=== PATIENT | female | born 1995 | race Hispanic/Latino ===

== ENCOUNTER 2021-01-10 08:59 | Emergency (ER) | payer MEDICAID ==
[~2021-01-10] VITALS: Ht 149.9 cm; Wt 80.0 kg
[2021-01-10 09:34] VITALS: BP 111/57
[2021-01-10 10:31] LABS: BASO% 1 % (0-3); EOS% 2 % (0-8); HEMATOCRIT 42.6 % (37.0-47.0); HEMOGLOBIN 12.1 g/dl (12.0-16.0); IMMATURE GRANULOCYTES 0.2 % (0.0-5.0); LYMPH% 24 % (15-41); MEAN CELL VOLUME 72.7 fL CALC (80.0-100.0); MEAN CORPUSCULAR HGB 20.6 pG CALC (26.0-32.0); MEAN CORPUSCULAR HGB CONC 28.4 g/dL CAL (32.0-36.0); MONO% 6 % (2-13); NEUT# 4.47 thou/uL (2.00-7.15); NEUT% 67 % (42-76); RED BLOOD COUNT 5.86 mill/uL (4.20-5.60)
[2021-01-10 10:52] LABS: ALBUMIN 4.3 g/dL (3.2-5.0); ALKALINE PHOSPHATASE 87 u/l (38-126); ANION GAP 11 (6-22 (CALC)); BILIRUBIN, TOTAL 0.4 mg/dL (0.0-1.4); BUN 10 mg/dL (7-17); BUN/CREATININE RATIO 24 (12-20 (CALC)); CARBON DIOXIDE 27 mmol/l (22-30); CHLORIDE 102 mmol/l (95-108); CREATININE 0.4 mg/dL (0.5-1.0); GFR > 60 ML/MIN (>=60 (CALC)); GFR FOR AFR.AMER. > 60 ML/MIN (>=60 (CALC)); LIPASE 38 u/l (23-300); POTASSIUM 3.8 mmol/l (3.5-5.1); SGOT/AST 50 u/l (14-36); SODIUM 137 mmol/l (137-146); TOTAL PROTEIN 7.8 g/dL (6.3-8.2)
[2021-01-10 10:53] LABS: PLATELET COUNT 272 thou/uL (130-400)
[2021-01-10 11:15] LABS: URINE BILIRUBIN - DIPSTICK NEGATIVE (NEGATIVE); URINE BLOOD DIPSTICK NEGATIVE (NEGATIVE); URINE COLOR YELLOW; URINE GLUCOSE - DIPSTICK NEGATIVE (NEGATIVE); URINE KETONE NEGATIVE (NEGATIVE); URINE LEUK ESTERASE NEGATIVE (NEGATIVE); URINE NITRITE - DIPSTICK NEGATIVE (Negative); URINE PH 5.5 (4.5-8.0); URINE PROTEIN - DIPSTICK NEGATIVE (NEG-TRACE); URINE UROBILINOGEN - DIPSTICK 0.2 E.U./dL (0.2)
== END 2021-01-10 13:40 | disposition home or self-care (01) ==
LOC: ED 08:59
PROVIDERS: Family Medicine
DX: R10.32 Left lower quadrant pain (principal); E66.9 Obesity, unspecified
CPT/HCPCS: Q9967

== ENCOUNTER 2021-01-13 19:53 | Emergency (ER) | payer MEDICAID ==
[~2021-01-13] VITALS: Ht 149.9 cm; Wt 80.5 kg
[2021-01-13] MEDS ORDERED: FERROUS SULFAT325 MG PO (20:33)
[2021-01-13] MEDS ORDERED: VITAMIN D PO (20:34)
[2021-01-13] MEDS ORDERED: MOTRIN400 MG/TAB PO (22:33)
[2021-01-14 00:03] VITALS: BP 112/66
== END 2021-01-14 00:05 | disposition home or self-care (01) ==
LOC: ED 19:53
DX: S80.02XA Contusion of left knee, initial encounter (principal); S40.011A Contusion of right shoulder, initial encounter; E66.9 Obesity, unspecified; V49.50XA Passenger injured in collision with unspecified motor vehicles in traffic accident, initial encounter

== ENCOUNTER 2021-01-20 10:09 | Emergency (ER) | payer MEDICAID ==
[~2021-01-20] VITALS: Ht 149.9 cm; Wt 78.0 kg
[~2021-01-20 10:09] MED LIST: FERROUS SULFAT325 MG PO; MOTRIN400 MG/TAB PO; VITAMIN D PO
[2021-01-20 13:10] VITALS: BP 105/58
== END 2021-01-20 13:21 | disposition home or self-care (01) ==
LOC: ED 10:09
DX: H92.02 Otalgia, left ear (principal); J02.9 Acute pharyngitis, unspecified; E66.3 Overweight; Z20.822 Contact with and (suspected) exposure to COVID-19

== ENCOUNTER 2021-02-12 08:24 | Emergency (ER) | payer MEDICAID ==
[~2021-02-12] VITALS: Ht 149.9 cm; Wt 79.0 kg
[2021-02-12] MEDS ORDERED: FERR SULFATE325 MG PO (08:40)
[2021-02-12 09:06] LABS: HEMATOCRIT 44.6 % (37.0-47.0); HEMOGLOBIN 13.2 g/dl (12.0-16.0); IMMATURE GRANULOCYTES 0.2 % (0.0-5.0); MEAN CORPUSCULAR HGB 23.4 pG CALC (26.0-32.0); MEAN CORPUSCULAR HGB CONC 29.6 g/dL CAL (32.0-36.0); NEUT# 5.6 thou/uL (2.00-7.15); RED BLOOD COUNT 5.64 mill/uL (4.20-5.60); RED CELL DISTRI WIDTH 20.9 % (11.5-15.5)
[2021-02-12 09:13] LABS: MEAN CELL VOLUME 79.1 fL CALC (80.0-100.0); URINE BILIRUBIN - DIPSTICK NEGATIVE (NEGATIVE); URINE BLOOD DIPSTICK NEGATIVE (NEGATIVE); URINE COLOR YELLOW; URINE GLUCOSE - DIPSTICK NEGATIVE (NEGATIVE); URINE KETONE NEGATIVE (NEGATIVE); URINE LEUK ESTERASE NEGATIVE (NEGATIVE); URINE PH 7.5 (4.5-8.0); URINE PROTEIN - DIPSTICK NEGATIVE (NEG-TRACE); URINE SPECIFIC GRAVITY 1.015; URINE UROBILINOGEN - DIPSTICK 0.2 E.U./dL (0.2)
[2021-02-12 09:18] LABS: URINE NITRITE - DIPSTICK NEGATIVE (Negative)
[2021-02-12 09:23] LABS: ALBUMIN 4.4 g/dL (3.2-5.0); ALKALINE PHOSPHATASE 85 u/l (38-126); AMYLASE 69 u/l (30-110); ANION GAP 12 (6-22 (CALC)); BILIRUBIN, TOTAL 0.4 mg/dL (0.0-1.4); BUN 16 mg/dL (7-17); BUN/CREATININE RATIO 29 (12-20 (CALC)); CARBON DIOXIDE 28 mmol/l (22-30); CHLORIDE 101 mmol/l (95-108); CREATININE 0.6 mg/dL (0.5-1.0); GFR > 60 ML/MIN (>=60 (CALC)); GFR FOR AFR.AMER. > 60 ML/MIN (>=60 (CALC)); LIPASE 59 u/l (23-300); SGOT/AST 51 u/l (14-36); SODIUM 137 mmol/l (137-146); TOTAL PROTEIN 7.7 g/dL (6.3-8.2)
[2021-02-12] MEDS ORDERED: ZOFRAN4 MG/TAB PO (10:03)
[2021-02-12 10:08] VITALS: BP 103/62
== END 2021-02-12 10:22 | disposition home or self-care (01) ==
LOC: ED 08:24
DX: R11.2 Nausea with vomiting, unspecified (principal); R10.13 Epigastric pain; R42 Dizziness and giddiness; E66.3 Overweight

== ENCOUNTER 2021-02-18 07:52 | Emergency (ER) | payer MEDICAID ==
[~2021-02-18] VITALS: Ht 149.9 cm; Wt 85.0 kg
[~2021-02-18 07:52] MED LIST changes: +FERR SULFATE325 MG PO; +ZOFRAN4 MG/TAB PO
[2021-02-18 09:28] VITALS: BP 124/72
[2021-02-18] MEDS ORDERED: IBUPROFEN600 MG PO (09:35)
[2021-02-18] MEDS ORDERED: FLEXERIL5 M1 PO (09:35)
== END 2021-02-18 10:11 | disposition home or self-care (01) ==
LOC: ED 07:52
DX: S16.1XXA Strain of muscle, fascia and tendon at neck level, initial encounter (principal); M62.48 Contracture of muscle, other site; E66.3 Overweight; X58.XXXA Exposure to other specified factors, initial encounter

== ENCOUNTER 2021-04-25 17:55 | Emergency (ER) | payer MEDICAID ==
[~2021-04-25] VITALS: Ht 149.9 cm; Wt 83.0 kg
[~2021-04-25 17:55] MED LIST changes: +FLEXERIL5 M1 PO; +IBUPROFEN600 MG PO
[2021-04-25] MEDS ORDERED: VITAMIN D PO (18:10)
[2021-04-25 19:01] LABS: URINE BILIRUBIN - DIPSTICK NEGATIVE (NEGATIVE); URINE BLOOD DIPSTICK NEGATIVE (NEGATIVE); URINE COLOR YELLOW; URINE GLUCOSE - DIPSTICK NEGATIVE (NEGATIVE); URINE KETONE NEGATIVE (NEGATIVE); URINE LEUK ESTERASE NEGATIVE (NEGATIVE); URINE PROTEIN - DIPSTICK NEGATIVE (NEG-TRACE); URINE SPECIFIC GRAVITY >=1.030; URINE UROBILINOGEN - DIPSTICK 0.2 E.U./dL (0.2)
[2021-04-25 19:04] LABS: URINE NITRITE - DIPSTICK NEGATIVE (Negative)
[2021-04-25 20:17] LABS: HEMATOCRIT 42.8 % (37.0-47.0); HEMOGLOBIN 13.3 g/dl (12.0-16.0); IMMATURE GRANULOCYTES 0.4 % (0.0-5.0); MEAN CELL VOLUME 80.8 fL CALC (80.0-100.0); MEAN CORPUSCULAR HGB 25.1 pG CALC (26.0-32.0); MEAN CORPUSCULAR HGB CONC 31.1 g/dL CAL (32.0-36.0); NEUT# 6.26 thou/uL (2.00-7.15); RED BLOOD COUNT 5.3 mill/uL (4.20-5.60); RED CELL DISTRI WIDTH 13.3 % (11.5-15.5)
[2021-04-25 20:22] LABS: ALBUMIN 4.2 g/dL (3.2-5.0); ALKALINE PHOSPHATASE 67 u/l (38-126); AMYLASE 74 u/l (30-110); ANION GAP 10 (6-22 (CALC)); BUN 10 mg/dL (7-17); BUN/CREATININE RATIO 25 (12-20 (CALC)); CARBON DIOXIDE 27 mmol/l (22-30); CHLORIDE 105 mmol/l (95-108); CREATININE 0.4 mg/dL (0.5-1.0); GFR > 60 ML/MIN (>=60 (CALC)); GFR FOR AFR.AMER. > 60 ML/MIN (>=60 (CALC)); LIPASE 44 u/l (23-300); POTASSIUM 3.8 mmol/l (3.5-5.1); SGOT/AST 71 u/l (14-36); SODIUM 138 mmol/l (137-146); TOTAL PROTEIN 7.8 g/dL (6.3-8.2)
[2021-04-25 20:24] LABS: BILIRUBIN, TOTAL 0.2 mg/dL (0.0-1.4)
[2021-04-25] MEDS ORDERED: CITRATE OF MEGNESIA PO (20:57)
[2021-04-25] MEDS ORDERED: MIRALAX17 GM PO (20:57)
[2021-04-25 21:00] VITALS: BP 138/90
== END 2021-04-25 21:11 | disposition home or self-care (01) ==
LOC: ED 17:55
PROVIDERS: Emergency Medicine
DX: K59.00 Constipation, unspecified (principal); E66.3 Overweight

== ENCOUNTER 2021-05-18 18:04 | Emergency (ER) | payer MEDICAID ==
[~2021-05-18] VITALS: Ht 149.9 cm; Wt 84.0 kg
[~2021-05-18 18:04] MED LIST changes: +CITRATE OF MEGNESIA PO; +MIRALAX17 GM PO
[2021-05-18 19:47] VITALS: BP 135/80
== END 2021-05-18 19:53 | disposition home or self-care (01) ==
LOC: ED 18:04
DX: S01.21XA Laceration without foreign body of nose, initial encounter (principal); V58.4XXA Person boarding or alighting a pick-up truck or van injured in noncollision transport accident, initial encounter

== ENCOUNTER 2021-05-20 21:37 | Emergency (ER) | payer MEDICAID ==
[~2021-05-20] VITALS: Ht 149.9 cm; Wt 83.0 kg
[2021-05-20 22:02] LABS: URINE BILIRUBIN - DIPSTICK NEGATIVE (NEGATIVE); URINE BLOOD DIPSTICK NEGATIVE (NEGATIVE); URINE COLOR YELLOW; URINE GLUCOSE - DIPSTICK 250 mg/dL (NEGATIVE); URINE KETONE TRACE mg/dL (NEGATIVE); URINE LEUK ESTERASE NEGATIVE (NEGATIVE); URINE NITRITE - DIPSTICK NEGATIVE (Negative); URINE PROTEIN - DIPSTICK NEGATIVE (NEG-TRACE); URINE SPECIFIC GRAVITY >=1.030; URINE UROBILINOGEN - DIPSTICK 0.2 E.U./dL (0.2)
[2021-05-20 22:03] LABS: HEMATOCRIT 42.8 % (37.0-47.0); HEMOGLOBIN 13.5 g/dl (12.0-16.0); IMMATURE GRANULOCYTES 0.1 % (0.0-5.0); MEAN CELL VOLUME 79.7 fL CALC (80.0-100.0); MEAN CORPUSCULAR HGB 25.1 pG CALC (26.0-32.0); MEAN CORPUSCULAR HGB CONC 31.5 g/dL CAL (32.0-36.0); NEUT# 6.74 thou/uL (2.00-7.15); RED BLOOD COUNT 5.37 mill/uL (4.20-5.60); RED CELL DISTRI WIDTH 13.4 % (11.5-15.5)
[2021-05-20 22:15] LABS: ALBUMIN 4.2 g/dL (3.2-5.0); ALKALINE PHOSPHATASE 70 u/l (38-126); ANION GAP 17 (6-22 (CALC)); BILIRUBIN, TOTAL 0.3 mg/dL (0.0-1.4); BUN 13 mg/dL (7-17); BUN/CREATININE RATIO 23 (12-20 (CALC)); CARBON DIOXIDE 22 mmol/l (22-30); CHLORIDE 105 mmol/l (95-108); CREATININE 0.6 mg/dL (0.5-1.0); ETHYL ALCOHOL 0 mg/dl (0-30); GFR > 60 ML/MIN (>=60 (CALC)); GFR FOR AFR.AMER. > 60 ML/MIN (>=60 (CALC)); POTASSIUM 4.2 mmol/l (3.5-5.1); SGOT/AST 114 u/l (14-36); SODIUM 140 mmol/l (137-146); TOTAL PROTEIN 7.4 g/dL (6.3-8.2)
[2021-05-21 03:44] LABS: ALKALINE PHOSPHATASE 62 u/l (38-126); ANION GAP 12 (6-22 (CALC)); BUN 12 mg/dL (7-17); BUN/CREATININE RATIO 30 (12-20 (CALC)); CARBON DIOXIDE 22 mmol/l (22-30); CHLORIDE 109 mmol/l (95-108); CREATININE 0.4 mg/dL (0.5-1.0); GFR > 60 ML/MIN (>=60 (CALC)); GFR FOR AFR.AMER. > 60 ML/MIN (>=60 (CALC)); POTASSIUM 4.1 mmol/l (3.5-5.1); SGOT/AST 81 u/l (14-36); SODIUM 139 mmol/l (137-146); TOTAL PROTEIN 6.2 g/dL (6.3-8.2)
[2021-05-21 03:48] LABS: ALBUMIN 3.2 g/dL (3.2-5.0); BILIRUBIN, TOTAL 0.5 mg/dL (0.0-1.4)
[2021-05-21 05:26] VITALS: BP 117/56
== END 2021-05-21 05:25 | disposition designated cancer center or children's hospital (05) ==
LOC: ED 21:37
PROVIDERS: Emergency Medicine
DX: T45.2X2A Poisoning by vitamins, intentional self-harm, initial encounter (principal); F32.9 Major depressive disorder, single episode, unspecified; F41.9 Anxiety disorder, unspecified; E66.3 Overweight; Y92.009 Unspecified place in unspecified non-institutional (private) residence as the place of occurrence of the external cause; Z63.8 Other specified problems related to primary support group
CPT/HCPCS: J2060

== ENCOUNTER 2021-06-21 12:19 | Emergency (ER) | payer MEDICAID ==
[~2021-06-21] VITALS: Ht 149.9 cm; Wt 83.2 kg
[2021-06-21 13:57] LABS: URINE BILIRUBIN - DIPSTICK NEGATIVE (NEGATIVE); URINE BLOOD DIPSTICK NEGATIVE (NEGATIVE); URINE CLARITY CLEAR; URINE COLOR YELLOW; URINE GLUCOSE - DIPSTICK NEGATIVE (NEGATIVE); URINE KETONE TRACE mg/dL (NEGATIVE); URINE LEUK ESTERASE NEGATIVE (Negative); URINE NITRITE - DIPSTICK NEGATIVE (Negative); URINE PROTEIN - DIPSTICK NEGATIVE (NEG-TRACE); URINE SPECIFIC GRAVITY >=1.030; URINE UROBILINOGEN - DIPSTICK 0.2 E.U./dL (0.2)
[2021-06-21 14:13] LABS: HEMATOCRIT 43.1 % (37.0-47.0); HEMOGLOBIN 13.3 g/dl (12.0-16.0); IMMATURE GRANULOCYTES 0.1 % (0.0-5.0); MEAN CELL VOLUME 80.6 fL CALC (80.0-100.0); MEAN CORPUSCULAR HGB 24.9 pG CALC (26.0-32.0); MEAN CORPUSCULAR HGB CONC 30.9 g/dL CAL (32.0-36.0); NEUT# 5.09 thou/uL (2.00-7.15); RED BLOOD COUNT 5.35 mill/uL (4.20-5.60); RED CELL DISTRI WIDTH 12.9 % (11.5-15.5)
[2021-06-21 14:18] LABS: ALKALINE PHOSPHATASE 75 u/l (38-126); ANION GAP 13 (6-22 (CALC)); BUN 18 mg/dL (7-17); BUN/CREATININE RATIO 38 (12-20 (CALC)); CARBON DIOXIDE 26 mmol/l (22-30); CHLORIDE 103 mmol/l (95-108); CREATININE 0.5 mg/dL (0.5-1.0); GFR > 60 ML/MIN (>=60 (CALC)); GFR FOR AFR.AMER. > 60 ML/MIN (>=60 (CALC)); POTASSIUM 4.3 mmol/l (3.5-5.1); SGOT/AST 112 u/l (14-36); SODIUM 138 mmol/l (137-146); TOTAL PROTEIN 7.3 g/dL (6.3-8.2)
[2021-06-21 14:19] LABS: ALBUMIN 3.9 g/dL (3.2-5.0); BILIRUBIN, TOTAL 0.2 mg/dL (0.0-1.4)
[2021-06-21] MEDS ORDERED: NAPROXEN500 MG PO (16:24)
[2021-06-21 16:44] VITALS: BP 116/64
== END 2021-06-21 16:51 | disposition home or self-care (01) ==
LOC: ED 12:19
PROVIDERS: Family Medicine
DX: S43.011A Anterior subluxation of right humerus, initial encounter (principal); W07.XXXA Fall from chair, initial encounter

== ENCOUNTER 2021-06-29 11:41 | Emergency (ER) | payer MEDICAID ==
[~2021-06-29 11:41] MED LIST changes: +NAPROXEN500 MG PO
[2021-06-29] MEDS ORDERED: GENTAK0.32 OU (13:05)
[2021-06-29 13:15] VITALS: BP 107/71
== END 2021-06-29 13:15 | disposition home or self-care (01) ==
LOC: ED 11:41
DX: H10.9 Unspecified conjunctivitis (principal)

== ENCOUNTER 2021-07-11 22:54 | Observation (INO) | payer MEDICAID ==
[~2021-07-11] VITALS: Ht 149.9 cm; Wt 81.0 kg
[~2021-07-11 22:54] MED LIST changes: +GENTAK0.32 OU
[2021-07-12 02:01] LABS: HEMATOCRIT 38.3 % (37.0-47.0); HEMOGLOBIN 11.8 g/dl (12.0-16.0); IMMATURE GRANULOCYTES 0.6 % (0.0-5.0); MEAN CELL VOLUME 79.5 fL CALC (80.0-100.0); MEAN CORPUSCULAR HGB 24.5 pG CALC (26.0-32.0); MEAN CORPUSCULAR HGB CONC 30.8 g/dL CAL (32.0-36.0); NEUT# 5.17 thou/uL (2.00-7.15); RED BLOOD COUNT 4.82 mill/uL (4.20-5.60); RED CELL DISTRI WIDTH 13.2 % (11.5-15.5)
[2021-07-12 02:17] LABS: URINE BILIRUBIN - DIPSTICK NEGATIVE (NEGATIVE); URINE BLOOD DIPSTICK LARGE (NEGATIVE); URINE COLOR YELLOW; URINE GLUCOSE - DIPSTICK NEGATIVE (NEGATIVE); URINE KETONE NEGATIVE (NEGATIVE); URINE PROTEIN - DIPSTICK NEGATIVE (NEG-TRACE); URINE UROBILINOGEN - DIPSTICK 0.2 E.U./dL (0.2)
[2021-07-12 02:27] LABS: URINE NITRITE - DIPSTICK NEGATIVE (Negative)
[2021-07-12 02:28] LABS: URINE EPITHELIAL CELLS FEW EPI/hpf (0-FEW); URINE LEUK ESTERASE NEGATIVE (NEGATIVE)
[2021-07-12 02:29] LABS: URINE BACTERIA FEW hpf
[2021-07-12 02:30] LABS: ALBUMIN 3.6 g/dL (3.2-5.0); ALKALINE PHOSPHATASE 76 u/l (38-126); AMYLASE 80 u/l (30-110); ANION GAP 12 (6-22 (CALC)); BUN 12 mg/dL (7-17); BUN/CREATININE RATIO 32 (12-20 (CALC)); CARBON DIOXIDE 23 mmol/l (22-30); CHLORIDE 106 mmol/l (95-108); CREATININE 0.4 mg/dL (0.5-1.0); GFR > 60 ML/MIN (>=60 (CALC)); GFR FOR AFR.AMER. > 60 ML/MIN (>=60 (CALC)); LIPASE 54 u/l (23-300); POTASSIUM 4.1 mmol/l (3.5-5.1); SGOT/AST 123 u/l (14-36); SODIUM 136 mmol/l (137-146); TOTAL PROTEIN 6.9 g/dL (6.3-8.2)
[2021-07-12] MEDS ORDERED: IRON (FERROUS S50 MG PO (03:57)
[2021-07-12 09:30] VITALS: BP 87/57
[2021-07-12] MEDS ORDERED: NAPROXEN500 MG PO (10:04)
[2021-07-12] MEDS ORDERED: VITAMIN D35000 UNIT PO (10:07)
[2021-07-12 15:15] VITALS: BP 103/63
[2021-07-12 19:00] VITALS: BP 119/74
[2021-07-13] VITALS (10 sets, daily range): BP systolic 93–118; BP diastolic 53–73
[2021-07-14 04:00] VITALS: BP 103/40
[2021-07-14 08:38] VITALS: BP 118/74
[2021-07-14 15:25] VITALS: BP 130/65
[2021-07-14 19:00] VITALS: BP 121/54
== END 2021-07-14 19:58 | disposition home or self-care (01) ==
LOC: ED 22:54 → ED-I 07-12 05:10 → ED 07-12 05:29 → MS2 07-12 05:30
PROVIDERS: Emergency Medicine; ADMIT Surgery; ATTEND Surgery
DX: K56.1 Intussusception (principal); E66.3 Overweight; Z68.36 Body mass index [BMI] 36.0-36.9, adult; Z20.822 Contact with and (suspected) exposure to COVID-19
CPT/HCPCS: G0378; J0131; J1650; J2710; Q9967

== ENCOUNTER 2021-09-16 10:48 | Emergency (ER) | payer MEDICAID ==
[~2021-09-16] VITALS: Ht 149.9 cm; Wt 83.8 kg
[~2021-09-16 10:48] MED LIST changes: +IRON (FERROUS S50 MG PO; +VITAMIN D35000 UNIT PO
[2021-09-16 14:26] VITALS: BP 103/64
== END 2021-09-16 14:27 | disposition home or self-care (01) ==
LOC: ED 10:48
DX: M62.830 Muscle spasm of back (principal)

== ENCOUNTER 2021-10-29 13:44 | Emergency (ER) | payer OTHER ==
[~2021-10-29] VITALS: Ht 149.9 cm; Wt 84.8 kg
[2021-10-29 15:33] VITALS: BP 116/60
== END 2021-10-29 15:33 | disposition home or self-care (01) ==
LOC: ED 13:44
DX: J06.9 Acute upper respiratory infection, unspecified (principal); Z20.822 Contact with and (suspected) exposure to COVID-19

== ENCOUNTER 2021-11-19 19:44 | Emergency (ER) | payer OTHER | END 2021-11-19 20:40 | disposition home or self-care (01) | DRG 951 | LOC: ED 19:44 → LWOBS 20:38 | DX: Z53.21 Procedure and treatment not carried out due to patient leaving prior to being seen by health care provider (principal) ==

== ENCOUNTER 2021-11-21 10:16 | Emergency (ER) | payer OTHER ==
[~2021-11-21] VITALS: Ht 149.9 cm; Wt 78.6 kg
[2021-11-21 11:40] VITALS: BP 121/81
== END 2021-11-21 11:40 | disposition home or self-care (01) ==
LOC: ED 10:16
DX: J06.9 Acute upper respiratory infection, unspecified (principal); Z20.822 Contact with and (suspected) exposure to COVID-19

== ENCOUNTER 2022-03-26 10:37 | Emergency (ER) | payer OTHER ==
[2022-03-26] VITALS (11 sets, daily range): BP systolic 85–111; BP diastolic 48–75
[~2022-03-26] VITALS: Ht 149.9 cm; Wt 81.5 kg
[2022-03-26 11:38] LABS: HEMATOCRIT 36.4 % (37.0-47.0); IMMATURE GRANULOCYTES 0.1 % (0.0-5.0); MEAN CORPUSCULAR HGB 17.6 pG CALC (26.0-32.0); MEAN CORPUSCULAR HGB CONC 27.5 g/dL CAL (32.0-36.0); NEUT# 3.91 thou/uL (2.00-7.15); RED BLOOD COUNT 5.69 mill/uL (4.20-5.60); RED CELL DISTRI WIDTH 16.8 % (11.5-15.5)
[2022-03-26 11:55] LABS: ALBUMIN 3.9 g/dL (3.2-5.0); ALKALINE PHOSPHATASE 87 u/l (38-126); AMYLASE 85 u/l (30-110); ANION GAP 8 (6-22 (CALC)); BUN 10 mg/dL (7-17); BUN/CREATININE RATIO 27 (12-20 (CALC)); CARBON DIOXIDE 26 mmol/l (22-30); CHLORIDE 106 mmol/l (95-108); CREATININE 0.4 mg/dL (0.5-1.0); GFR > 60 ML/MIN (>=60 (CALC)); GFR FOR AFR.AMER. > 60 ML/MIN (>=60 (CALC)); LIPASE 51 u/l (23-300); POTASSIUM 3.8 mmol/l (3.5-5.1); SGOT/AST 155 u/l (14-36); SODIUM 137 mmol/l (137-146); TOTAL PROTEIN 7.3 g/dL (6.3-8.2)
[2022-03-26 12:06] LABS: BILIRUBIN, TOTAL 0.3 mg/dL (0.0-1.4)
[2022-03-26 13:13] LABS: URINE BILIRUBIN - DIPSTICK NEGATIVE (NEGATIVE); URINE BLOOD DIPSTICK LARGE (NEGATIVE); URINE COLOR YELLOW; URINE GLUCOSE - DIPSTICK 500 mg/dL (NEGATIVE); URINE KETONE NEGATIVE (NEGATIVE); URINE LEUK ESTERASE NEGATIVE (NEGATIVE); URINE PH 5.5 (4.5-8.0); URINE PROTEIN - DIPSTICK NEGATIVE (NEG-TRACE); URINE SPECIFIC GRAVITY 1.025; URINE UROBILINOGEN - DIPSTICK 0.2 E.U./dL (0.2)
[2022-03-26 13:14] LABS: URINE NITRITE - DIPSTICK NEGATIVE (Negative)
[2022-03-26 13:15] LABS: URINE EPITHELIAL CELLS FEW EPI/hpf (0-FEW); URINE RBC 50-100 RBC/hpf (0-5); URINE WBC 0-2 WBC/hpf (0-5)
[2022-03-26] MEDS ORDERED: ZOFRAN4 MG/TAB PO (14:59)
[2022-03-26] MEDS ORDERED: HYDROCO/APAP1 TA9 PO (14:59)
== END 2022-03-26 15:21 | disposition home or self-care (01) ==
LOC: ED 10:37
DX: R10.13 Epigastric pain (principal); R10.12 Left upper quadrant pain; R11.2 Nausea with vomiting, unspecified; R19.7 Diarrhea, unspecified
CPT/HCPCS: Q9967; S0164

== ENCOUNTER 2022-04-11 11:29 | Emergency (ER) | payer OTHER ==
[~2022-04-11] VITALS: Ht 149.9 cm; Wt 78.0 kg
[~2022-04-11 11:29] MED LIST changes: +HYDROCO/APAP1 TA9 PO
[2022-04-11 12:01] VITALS: BP 81/55
[2022-04-11 12:16] VITALS: BP 99/59
[2022-04-11 12:47] VITALS: BP 108/62
[2022-04-11 13:45] VITALS: BP 100/63
[2022-04-11 14:00] VITALS: BP 114/75
[2022-04-11] MEDS ORDERED: NAPROXEN500 MG PO (14:10)
[2022-04-11 14:15] VITALS: BP 104/68
== END 2022-04-11 14:25 | disposition home or self-care (01) ==
LOC: ED 11:29
DX: S80.11XA Contusion of right lower leg, initial encounter (principal); S93.401A Sprain of unspecified ligament of right ankle, initial encounter; W01.0XXA Fall on same level from slipping, tripping and stumbling without subsequent striking against object, initial encounter

== ENCOUNTER 2022-04-26 08:12 | Emergency (ER) | payer OTHER ==
[2022-04-26] VITALS (9 sets, daily range): BP systolic 100–130; BP diastolic 53–76
[~2022-04-26] VITALS: Ht 149.9 cm; Wt 83.0 kg
[2022-04-26 08:54] LABS: HEMATOCRIT 35.6 % (37.0-47.0); HEMOGLOBIN 9.5 g/dl (12.0-16.0); IMMATURE GRANULOCYTES 0.1 % (0.0-5.0); MEAN CELL VOLUME 62.3 fL CALC (80.0-100.0); MEAN CORPUSCULAR HGB 16.6 pG CALC (26.0-32.0); MEAN CORPUSCULAR HGB CONC 26.7 g/dL CAL (32.0-36.0); NEUT# 4.75 thou/uL (2.00-7.15); RED BLOOD COUNT 5.71 mill/uL (4.20-5.60); RED CELL DISTRI WIDTH 18.4 % (11.5-15.5)
[2022-04-26 09:00] LABS: URINE BILIRUBIN - DIPSTICK NEGATIVE (NEGATIVE); URINE BLOOD DIPSTICK MODERATE (NEGATIVE); URINE COLOR YELLOW; URINE GLUCOSE - DIPSTICK 500 mg/dL (NEGATIVE); URINE KETONE TRACE mg/dL (NEGATIVE); URINE LEUK ESTERASE NEGATIVE (NEGATIVE); URINE PH 5.5 (4.5-8.0); URINE PROTEIN - DIPSTICK NEGATIVE (NEG-TRACE); URINE SPECIFIC GRAVITY >=1.030; URINE UROBILINOGEN - DIPSTICK 0.2 E.U./dL (0.2)
[2022-04-26 09:03] LABS: URINE NITRITE - DIPSTICK NEGATIVE (Negative)
[2022-04-26 09:04] LABS: ALBUMIN 3.8 g/dL (3.2-5.0); ALKALINE PHOSPHATASE 100 u/l (38-126); ANION GAP 12 (6-22 (CALC)); BILIRUBIN, TOTAL 0.2 mg/dL (0.0-1.4); BUN 13 mg/dL (7-17); BUN/CREATININE RATIO 22 (12-20 (CALC)); CARBON DIOXIDE 23 mmol/l (22-30); CHLORIDE 107 mmol/l (95-108); CREATININE 0.6 mg/dL (0.5-1.0); GFR FOR AFR.AMER. > 60 ML/MIN (>=60 (CALC)); GFR OTHER RACES > 60 ML/MIN (>=60 (CALC)); LIPASE 53 u/l (23-300); POTASSIUM 4.1 mmol/l (3.5-5.1); SGOT/AST 78 u/l (14-36); SODIUM 138 mmol/l (137-146); TOTAL PROTEIN 6.9 g/dL (6.3-8.2)
[2022-04-26 09:12] LABS: URINE BACTERIA FEW hpf; URINE SQUAMOUS EPITHELIAL CELL FEW EPI/hpf (0-FEW)
[2022-04-26] MEDS ORDERED: CEPHALEXIN500 MG PO (10:30)
== END 2022-04-26 10:53 | disposition home or self-care (01) ==
LOC: ED 08:12
PROVIDERS: Family Medicine
DX: R51.9 Headache, unspecified (principal); N39.0 Urinary tract infection, site not specified; E66.9 Obesity, unspecified; Z20.822 Contact with and (suspected) exposure to COVID-19

== ENCOUNTER 2022-05-14 12:19 | Emergency (ER) | payer OTHER ==
[~2022-05-14] VITALS: Ht 149.9 cm; Wt 81.0 kg
[2022-05-14] VITALS (8 sets, daily range): BP systolic 104–118; BP diastolic 69–83
[~2022-05-14 12:19] MED LIST changes: +CEPHALEXIN500 MG PO
== END 2022-05-14 14:24 | disposition home or self-care (01) ==
LOC: ED 12:19
DX: J02.9 Acute pharyngitis, unspecified (principal); Z20.822 Contact with and (suspected) exposure to COVID-19
CPT/HCPCS: J0561

== ENCOUNTER 2022-05-25 06:26 | Emergency (ER) | payer OTHER ==
[2022-05-25] VITALS (10 sets, daily range): BP systolic 95–107; BP diastolic 55–71
[~2022-05-25] VITALS: Ht 149.9 cm; Wt 79.4 kg
[2022-05-25 07:35] LABS: URINE BILIRUBIN - DIPSTICK NEGATIVE (NEGATIVE); URINE BLOOD DIPSTICK SMALL (NEGATIVE); URINE COLOR YELLOW; URINE GLUCOSE - DIPSTICK >=1000 mg/dL (NEGATIVE); URINE KETONE >=80 mg/dL (NEGATIVE); URINE LEUK ESTERASE NEGATIVE (NEGATIVE); URINE PH 5.5 (4.5-8.0); URINE PROTEIN - DIPSTICK 30 mg/dL (NEG-TRACE); URINE UROBILINOGEN - DIPSTICK 0.2 E.U./dL (0.2)
[2022-05-25 07:36] LABS: HEMATOCRIT 34.9 % (37.0-47.0); HEMOGLOBIN 9.5 g/dl (12.0-16.0); IMMATURE GRANULOCYTES 0.4 % (0.0-5.0); MEAN CELL VOLUME 61.1 fL CALC (80.0-100.0); MEAN CORPUSCULAR HGB 16.6 pG CALC (26.0-32.0); MEAN CORPUSCULAR HGB CONC 27.2 g/dL CAL (32.0-36.0); NEUT# 10.3 thou/uL (2.00-7.15); RED BLOOD COUNT 5.71 mill/uL (4.20-5.60); RED CELL DISTRI WIDTH 18.8 % (11.5-15.5)
[2022-05-25 07:50] LABS: URINE NITRITE - DIPSTICK NEGATIVE (Negative)
[2022-05-25 07:54] LABS: ALKALINE PHOSPHATASE 86 u/l (38-126); ANION GAP 12 (6-22 (CALC)); BILIRUBIN, TOTAL 0.7 mg/dL (0.0-1.4); BUN 7 mg/dL (7-17); BUN/CREATININE RATIO 19 (12-20 (CALC)); CARBON DIOXIDE 22 mmol/l (22-30); CHLORIDE 105 mmol/l (95-108); CREATININE 0.4 mg/dL (0.5-1.0); GFR FOR AFR.AMER. > 60 ML/MIN (>=60 (CALC)); GFR OTHER RACES > 60 ML/MIN (>=60 (CALC)); POTASSIUM 3.3 mmol/l (3.5-5.1); SGOT/AST 59 u/l (14-36); SODIUM 135 mmol/l (137-146); TOTAL PROTEIN 7.6 g/dL (6.3-8.2)
[2022-05-25 07:57] LABS: URINE SQUAMOUS EPITHELIAL CELL FEW EPI/hpf (0-FEW)
[2022-05-25] MEDS ORDERED: CEPHALEXIN500 M1 PO (10:03)
== END 2022-05-25 10:17 | disposition home or self-care (01) ==
LOC: ED 06:26
PROVIDERS: Family Medicine
DX: R51.9 Headache, unspecified (principal); M54.2 Cervicalgia; L53.9 Erythematous condition, unspecified; D72.829 Elevated white blood cell count, unspecified; R73.9 Hyperglycemia, unspecified; M25.562 Pain in left knee; M25.552 Pain in left hip; E66.9 Obesity, unspecified; W18.40XA Slipping, tripping and stumbling without falling, unspecified, initial encounter; Z20.822 Contact with and (suspected) exposure to COVID-19

== ENCOUNTER 2022-05-29 23:07 | Emergency (ER) | payer OTHER ==
[~2022-05-29] VITALS: Ht 149.9 cm; Wt 80.0 kg
[~2022-05-29 23:07] MED LIST changes: +CEPHALEXIN500 M1 PO
[2022-05-30 01:24] LABS: URINE BILIRUBIN - DIPSTICK NEGATIVE (NEGATIVE); URINE BLOOD DIPSTICK MODERATE (NEGATIVE); URINE COLOR YELLOW; URINE GLUCOSE - DIPSTICK >=1000 mg/dL (NEGATIVE); URINE KETONE NEGATIVE (NEGATIVE); URINE PH 5.5 (4.5-8.0); URINE PROTEIN - DIPSTICK NEGATIVE (NEG-TRACE); URINE SPECIFIC GRAVITY 1.015; URINE UROBILINOGEN - DIPSTICK 0.2 E.U./dL (0.2)
[2022-05-30 01:37] LABS: URINE NITRITE - DIPSTICK NEGATIVE (Negative)
[2022-05-30 01:45] LABS: URINE LEUK ESTERASE NEGATIVE (NEGATIVE)
[2022-05-30 01:47] LABS: URINE EPITHELIAL CELLS FEW EPI/hpf (0-FEW)
[2022-05-30 01:48] LABS: URINE BACTERIA MODERATE hpf
[2022-05-30] MEDS ORDERED: KEFLEX500 MG PO (01:51)
[2022-05-30 01:59] VITALS: BP 121/55
== END 2022-05-30 02:10 | disposition home or self-care (01) ==
LOC: ED 23:07
PROVIDERS: Emergency Medicine
DX: N39.0 Urinary tract infection, site not specified (principal); B96.1 Klebsiella pneumoniae [K. pneumoniae] as the cause of diseases classified elsewhere

== ENCOUNTER 2022-07-11 06:35 | Emergency (ER) | payer OTHER ==
[~2022-07-11] VITALS: Ht 149.9 cm; Wt 79.0 kg
[2022-07-11] VITALS (7 sets, daily range): BP systolic 105–123; BP diastolic 52–83
[~2022-07-11 06:35] MED LIST changes: +KEFLEX500 MG PO
[2022-07-11 07:56] LABS: HEMATOCRIT 32.9 % (37.0-47.0); HEMOGLOBIN 8.7 g/dl (12.0-16.0); IMMATURE GRANULOCYTES 0.1 % (0.0-5.0); MEAN CORPUSCULAR HGB 15.9 pG CALC (26.0-32.0); MEAN CORPUSCULAR HGB CONC 26.4 g/dL CAL (32.0-36.0); NEUT# 3.95 thou/uL (2.00-7.15); RED BLOOD COUNT 5.48 mill/uL (4.20-5.60); RED CELL DISTRI WIDTH 18.3 % (11.5-15.5)
[2022-07-11 08:00] LABS: URINE BILIRUBIN - DIPSTICK NEGATIVE (NEGATIVE); URINE BLOOD DIPSTICK SMALL (NEGATIVE); URINE COLOR YELLOW; URINE GLUCOSE - DIPSTICK >=1000 mg/dL (NEGATIVE); URINE KETONE NEGATIVE (NEGATIVE); URINE UROBILINOGEN - DIPSTICK 0.2 E.U./dL (0.2)
[2022-07-11 08:14] LABS: URINE NITRITE - DIPSTICK NEGATIVE (Negative)
[2022-07-11 08:15] LABS: URINE BACTERIA RARE hpf; URINE EPITHELIAL CELLS FEW EPI/hpf (0-FEW); URINE LEUK ESTERASE SMALL (NEGATIVE); URINE PROTEIN - DIPSTICK NEGATIVE (NEG-TRACE)
[2022-07-11 08:20] LABS: ALKALINE PHOSPHATASE 88 u/l (38-126); ANION GAP 13 (6-22 (CALC)); BILIRUBIN, TOTAL 0.5 mg/dL (0.0-1.4); BUN 6 mg/dL (7-17); BUN/CREATININE RATIO 16 (12-20 (CALC)); CARBON DIOXIDE 26 mmol/l (22-30); CHLORIDE 105 mmol/l (95-108); CREATININE 0.3 mg/dL (0.5-1.0); GFR FOR AFR.AMER. > 60 ML/MIN (>=60 (CALC)); GFR OTHER RACES > 60 ML/MIN (>=60 (CALC)); LIPASE 42 u/l (23-300); SGOT/AST 78 u/l (14-36); SODIUM 140 mmol/l (137-146); TOTAL PROTEIN 7.1 g/dL (6.3-8.2)
[2022-07-11] MEDS ORDERED: BACTRIM DS1 TAB PO (09:26)
== END 2022-07-11 09:38 | disposition home or self-care (01) ==
LOC: ED 06:35
PROVIDERS: Emergency Medicine
DX: R10.32 Left lower quadrant pain (principal); N39.0 Urinary tract infection, site not specified; E11.9 Type 2 diabetes mellitus without complications; B96.1 Klebsiella pneumoniae [K. pneumoniae] as the cause of diseases classified elsewhere

== ENCOUNTER 2022-08-03 15:59 | Emergency (ER) | payer OTHER ==
[~2022-08-03] VITALS: Ht 149.9 cm; Wt 80.0 kg
[~2022-08-03 15:59] MED LIST changes: +BACTRIM DS1 TAB PO
[2022-08-03 16:37] VITALS: BP 112/66
[2022-08-03 16:45] VITALS: BP 106/69
[2022-08-03 17:35] LABS: HEMOGLOBIN 8.7 g/dl (12.0-16.0); IMMATURE GRANULOCYTES 0.4 % (0.0-5.0); MEAN CELL VOLUME 57.8 fL CALC (80.0-100.0); MEAN CORPUSCULAR HGB 15.7 pG CALC (26.0-32.0); MEAN CORPUSCULAR HGB CONC 27.2 g/dL CAL (32.0-36.0); NEUT# 3.49 thou/uL (2.00-7.15); RED BLOOD COUNT 5.54 mill/uL (4.20-5.60); RED CELL DISTRI WIDTH 19.2 % (11.5-15.5)
[2022-08-03 17:53] LABS: ALBUMIN 4.3 g/dL (3.2-5.0); ALKALINE PHOSPHATASE 78 u/l (38-126); ANION GAP 14 (6-22 (CALC)); BILIRUBIN, TOTAL 0.6 mg/dL (0.0-1.4); BUN 5 mg/dL (7-17); BUN/CREATININE RATIO 14 (12-20 (CALC)); CARBON DIOXIDE 24 mmol/l (22-30); CHLORIDE 103 mmol/l (95-108); CPK 162 u/l (30-165); CREATININE 0.4 mg/dL (0.5-1.0); GFR FOR AFR.AMER. > 60 ML/MIN (>=60 (CALC)); GFR OTHER RACES > 60 ML/MIN (>=60 (CALC)); POTASSIUM 3.5 mmol/l (3.5-5.1); SGOT/AST 51 u/l (14-36); SODIUM 137 mmol/l (137-146); TOTAL PROTEIN 7.5 g/dL (6.3-8.2)
[2022-08-03] MEDS ORDERED: NAPROXEN375 MG PO (17:58)
[2022-08-03] MEDS ORDERED: PREDNISONE20 MG PO (17:58)
[2022-08-03 17:59] VITALS: BP 106/69
== END 2022-08-03 18:09 | disposition home or self-care (01) ==
LOC: ED 15:59
PROVIDERS: Internal Medicine
DX: J02.9 Acute pharyngitis, unspecified (principal); R05.9 Cough, unspecified; Z20.822 Contact with and (suspected) exposure to COVID-19

== ENCOUNTER 2022-10-03 14:19 | Emergency (ER) | payer OTHER ==
[~2022-10-03] VITALS: Ht 149.9 cm; Wt 79.3 kg
[~2022-10-03 14:19] MED LIST changes: +NAPROXEN375 MG PO; +PREDNISONE20 MG PO
[2022-10-03 14:31] VITALS: BP 121/63
[2022-10-03 15:01] VITALS: BP 92/56
[2022-10-03 15:08] LABS: HEMATOCRIT 29.6 % (37.0-47.0); HEMOGLOBIN 7.8 g/dl (12.0-16.0); IMMATURE GRANULOCYTES 0.2 % (0.0-5.0); MEAN CELL VOLUME 58.3 fL CALC (80.0-100.0); MEAN CORPUSCULAR HGB 15.4 pG CALC (26.0-32.0); MEAN CORPUSCULAR HGB CONC 26.4 g/dL CAL (32.0-36.0); NEUT# 4.72 thou/uL (2.00-7.15); RED BLOOD COUNT 5.08 mill/uL (4.20-5.60); RED CELL DISTRI WIDTH 18.9 % (11.5-15.5)
[2022-10-03 15:17] LABS: URINE BILIRUBIN - DIPSTICK NEGATIVE (NEGATIVE); URINE BLOOD DIPSTICK NEGATIVE (NEGATIVE); URINE COLOR YELLOW; URINE GLUCOSE - DIPSTICK NEGATIVE (NEGATIVE); URINE KETONE NEGATIVE (NEGATIVE); URINE LEUK ESTERASE TRACE (NEGATIVE); URINE PROTEIN - DIPSTICK NEGATIVE (NEG-TRACE); URINE SPECIFIC GRAVITY >=1.030; URINE UROBILINOGEN - DIPSTICK 0.2 E.U./dL (0.2)
[2022-10-03 15:19] LABS: URINE NITRITE - DIPSTICK NEGATIVE (Negative)
[2022-10-03 15:26] LABS: ALBUMIN 4.2 g/dL (3.2-5.0); ALKALINE PHOSPHATASE 85 u/l (38-126); BUN 13 mg/dL (7-17); BUN/CREATININE RATIO 27 (12-20 (CALC)); CARBON DIOXIDE 25 mmol/l (22-30); CHLORIDE 107 mmol/l (95-108); CREATININE 0.5 mg/dL (0.5-1.0); GFR FOR AFR.AMER. > 60 ML/MIN (>=60 (CALC)); GFR OTHER RACES > 60 ML/MIN (>=60 (CALC)); LIPASE 46 u/l (23-300); SGOT/AST 43 u/l (14-36); SODIUM 139 mmol/l (137-146); TOTAL PROTEIN 7.4 g/dL (6.3-8.2)
[2022-10-03 15:28] LABS: ANION GAP 11 (6-22 (CALC)); POTASSIUM 3.5 mmol/l (3.5-5.1)
[2022-10-03 15:29] LABS: BILIRUBIN, TOTAL 0.2 mg/dL (0.0-1.4)
[2022-10-03] MEDS ORDERED: MOTRIN800 MG PO (16:11)
[2022-10-03] MEDS ORDERED: FERROUS FUM324 MG PO (16:11)
[2022-10-03 16:22] VITALS: BP 113/57
== END 2022-10-03 16:30 | disposition home or self-care (01) ==
LOC: ED 14:19
PROVIDERS: Emergency Medicine
DX: R10.9 Unspecified abdominal pain (principal); D64.9 Anemia, unspecified

== ENCOUNTER 2022-10-29 09:29 | Emergency (ER) | payer OTHER ==
[~2022-10-29] VITALS: Ht 149.9 cm; Wt 80.0 kg
[~2022-10-29 09:29] MED LIST changes: +FERROUS FUM324 MG PO; +MOTRIN800 MG PO
[2022-10-29 09:35] VITALS: BP 86/72
[2022-10-29 09:45] VITALS: BP 101/49
[2022-10-29 10:16] VITALS: BP 108/65
[2022-10-29 10:30] VITALS: BP 113/84
[2022-10-29 10:47] VITALS: BP 106/88
[2022-10-29 10:54] VITALS: BP 106/88
== END 2022-10-29 10:54 | disposition home or self-care (01) | DRG 552 ==
LOC: ED 09:29
DX: M54.2 Cervicalgia (principal)

== ENCOUNTER 2022-11-05 09:19 | Emergency (ER) | payer OTHER ==
[2022-11-05] VITALS (7 sets, daily range): BP systolic 84–125; BP diastolic 29–73
[~2022-11-05] VITALS: Ht 149.9 cm; Wt 80.6 kg
[2022-11-05] MEDS ORDERED: METHOCARBAMOL500 MG PO (13:18)
[2022-11-05] MEDS ORDERED: NAPROXEN500 MG PO (13:18)
[2022-11-05] MEDS ORDERED: MEDDOSEPAK PO (13:18)
== END 2022-11-05 13:38 | disposition home or self-care (01) ==
LOC: ED 09:19
DX: M54.2 Cervicalgia (principal)

== ENCOUNTER 2023-01-11 23:00 | Emergency (ER) | payer OTHER ==
[~2023-01-11] VITALS: Ht 149.9 cm; Wt 80.0 kg
[~2023-01-11 23:00] MED LIST changes: +MEDDOSEPAK PO; +METHOCARBAMOL500 MG PO
[2023-01-12] VITALS (15 sets, daily range): BP systolic 96–115; BP diastolic 53–84
[2023-01-12 01:28] LABS: URINE BILIRUBIN - DIPSTICK NEGATIVE (NEGATIVE); URINE BLOOD DIPSTICK NEGATIVE (NEGATIVE); URINE COLOR YELLOW; URINE GLUCOSE - DIPSTICK 500 mg/dL (NEGATIVE); URINE KETONE TRACE mg/dL (NEGATIVE); URINE LEUK ESTERASE NEGATIVE (NEGATIVE); URINE PROTEIN - DIPSTICK TRACE mg/dL (NEG-TRACE); URINE SPECIFIC GRAVITY >=1.030; URINE UROBILINOGEN - DIPSTICK 0.2 E.U./dL (0.2)
[2023-01-12 01:42] LABS: URINE NITRITE - DIPSTICK NEGATIVE (Negative)
[2023-01-12 01:58] LABS: BASO% 0.2 % (0-3); EOS% 2.6 % (0-8); HEMATOCRIT 37.5 % (37.0-47.0); HEMOGLOBIN 10.3 g/dl (12.0-16.0); IMMATURE GRANULOCYTES 0.1 % (0.0-5.0); LYMPH% 41.2 % (15-41); MEAN CELL VOLUME 60.7 fL CALC (80.0-100.0); MEAN CORPUSCULAR HGB 16.7 pG CALC (26.0-32.0); MEAN CORPUSCULAR HGB CONC 27.5 g/dL CAL (32.0-36.0); MONO% 4.6 % (2-13); NEUT# 4.15 thou/uL (2.00-7.15); NEUT% 51.3 % (42-76); RED BLOOD COUNT 6.18 mill/uL (4.20-5.60); RED CELL DISTRI WIDTH 17.7 % (11.5-15.5)
[2023-01-12 02:07] LABS: ALBUMIN 4.8 g/dL (3.2-5.0); ALKALINE PHOSPHATASE 97 u/l (38-126); AMYLASE 94 u/l (30-110); ANION GAP 15 (6-22 (CALC)); BUN 12 mg/dL (7-17); BUN/CREATININE RATIO 27 (12-20 (CALC)); CARBON DIOXIDE 21 mmol/l (22-30); CHLORIDE 108 mmol/l (95-108); CREATININE 0.4 mg/dL (0.5-1.0); GFR FOR AFR.AMER. > 60 ML/MIN (>=60 (CALC)); GFR OTHER RACES > 60 ML/MIN (>=60 (CALC)); LIPASE 80 u/l (23-300); POTASSIUM 3.5 mmol/l (3.5-5.1); SGOT/AST 60 u/l (14-36); SODIUM 141 mmol/l (137-146)
[2023-01-12 02:12] LABS: BILIRUBIN, TOTAL 0.3 mg/dL (0.02-1.3)
[2023-01-12] MEDS ORDERED: PAXLOVID PO (04:01)
== END 2023-01-12 05:51 | disposition home or self-care (01) ==
LOC: ED 23:00
PROVIDERS: Emergency Medicine
DX: U07.1 COVID-19 (principal); K59.00 Constipation, unspecified

== ENCOUNTER 2023-02-14 09:45 | Emergency (ER) | payer OTHER ==
[~2023-02-14] VITALS: Ht 149.9 cm; Wt 75.0 kg
[~2023-02-14 09:45] MED LIST changes: +PAXLOVID PO
[2023-02-14 10:10] VITALS: BP 113/77
[2023-02-14 11:01] VITALS: BP 98/59
[2023-02-14 11:44] VITALS: BP 98/59
== END 2023-02-14 11:53 | disposition home or self-care (01) ==
LOC: ED 09:45
DX: M25.571 Pain in right ankle and joints of right foot (principal)

== ENCOUNTER 2023-03-14 22:37 | Emergency (ER) | payer OTHER ==
[~2023-03-14] VITALS: Ht 149.9 cm; Wt 82.0 kg
[2023-03-14 22:47] VITALS: BP 119/71
[2023-03-14 23:05] LABS: URINE BILIRUBIN - DIPSTICK NEGATIVE (NEGATIVE); URINE BLOOD DIPSTICK NEGATIVE (NEGATIVE); URINE COLOR YELLOW; URINE GLUCOSE - DIPSTICK >=1000 mg/dL (NEGATIVE); URINE KETONE NEGATIVE (NEGATIVE); URINE LEUK ESTERASE NEGATIVE (NEGATIVE); URINE PROTEIN - DIPSTICK NEGATIVE (NEG-TRACE); URINE UROBILINOGEN - DIPSTICK 0.2 E.U./dL (0.2)
[2023-03-14 23:07] LABS: URINE NITRITE - DIPSTICK NEGATIVE (Negative)
[2023-03-14 23:45] VITALS: BP 107/56
[2023-03-15] VITALS (8 sets, daily range): BP systolic 87–108; BP diastolic 50–73
[2023-03-15 00:18] LABS: ALBUMIN 4.2 g/dL (3.2-5.0); ALKALINE PHOSPHATASE 126 u/l (38-126); ANION GAP 14 (6-22 (CALC)); BILIRUBIN, TOTAL 0.3 mg/dL (0.02-1.3); BUN 9 mg/dL (7-17); BUN/CREATININE RATIO 16 (12-20 (CALC)); CARBON DIOXIDE 20 mmol/l (22-30); CHLORIDE 106 mmol/l (95-108); CREATININE 0.6 mg/dL (0.5-1.0); GFR FOR AFR.AMER. > 60 ML/MIN (>=60 (CALC)); GFR OTHER RACES > 60 ML/MIN (>=60 (CALC)); SGOT/AST 63 u/l (14-36); SODIUM 135 mmol/l (137-146); TOTAL PROTEIN 7.3 g/dL (6.3-8.2)
[2023-03-15 00:27] LABS: BASO% 0.4 % (0-3); HEMATOCRIT 32.6 % (37.0-47.0); IMMATURE GRANULOCYTES 0.8 % (0.0-5.0); LYMPH% 16.2 % (15-41); MEAN CORPUSCULAR HGB 14.5 pG CALC (26.0-32.0); MEAN CORPUSCULAR HGB CONC 25.5 g/dL CAL (32.0-36.0); NEUT# 11.93 thou/uL (2.00-7.15); NEUT% 76.6 % (42-76); RED BLOOD COUNT 5.74 mill/uL (4.20-5.60); RED CELL DISTRI WIDTH 19.5 % (11.5-15.5)
[2023-03-15 00:28] LABS: HEMOGLOBIN 8.3 g/dl (12.0-16.0); MEAN CELL VOLUME 56.8 fL CALC (80.0-100.0)
[2023-03-15 00:32] LABS: ACT PARTIAL THROMBO TIME 24.2 SECONDS (20.0-32.5); INTERNATIONAL NORMALIZED RATIO 0.9 RATIO (0.7-1.3); PROTHROMBIN TIME 9.4 SECONDS (9.0-12.5)
[2023-03-15 00:46] LABS: D-DIMER 0.33 mg/L (0.19-0.60)
[2023-03-15] MEDS ORDERED: PROMETHAZINE HY25 M1 PO (01:37)
[2023-03-15] MEDS ORDERED: VOLTAREN - GENE75 MG PO (01:37)
== END 2023-03-15 02:04 | disposition home or self-care (01) ==
LOC: ED 22:37
PROVIDERS: Family Medicine
DX: B34.9 Viral infection, unspecified (principal); E11.9 Type 2 diabetes mellitus without complications; Z20.822 Contact with and (suspected) exposure to COVID-19

== ENCOUNTER 2023-03-19 09:22 | Emergency (ER) | payer OTHER ==
[~2023-03-19] VITALS: Ht 149.9 cm; Wt 80.0 kg
[~2023-03-19 09:22] MED LIST changes: +PROMETHAZINE HY25 M1 PO; +VOLTAREN - GENE75 MG PO
[2023-03-19 09:34] VITALS: BP 122/84
[2023-03-19] MEDS ORDERED: ZPAK PO (09:57)
[2023-03-19] MEDS ORDERED: OFLOXACIN0.3 % OU (09:57)
[2023-03-19 10:01] VITALS: BP 112/86
[2023-03-19 10:45] VITALS: BP 112/86
== END 2023-03-19 10:47 | disposition home or self-care (01) ==
LOC: ED 09:22
DX: H10.9 Unspecified conjunctivitis (principal); J02.9 Acute pharyngitis, unspecified

== ENCOUNTER 2023-04-25 08:50 | Emergency (ER) | payer OTHER ==
[~2023-04-25] VITALS: Ht 149.9 cm; Wt 77.0 kg
[2023-04-25] VITALS (15 sets, daily range): BP systolic 95–131; BP diastolic 30–112
[~2023-04-25 08:50] MED LIST changes: +OFLOXACIN0.3 % OU; +ZPAK PO
[2023-04-25 09:53] LABS: BASO% 0.2 % (0-3); EOS% 1.3 % (0-8); HEMATOCRIT 32.4 % (37.0-47.0); HEMOGLOBIN 8.1 g/dl (12.0-16.0); IMMATURE GRANULOCYTES 0.4 % (0.0-5.0); LYMPH% 35.3 % (15-41); MEAN CELL VOLUME 56.7 fL CALC (80.0-100.0); MEAN CORPUSCULAR HGB 14.2 pG CALC (26.0-32.0); NEUT# 3.22 thou/uL (2.00-7.15); NEUT% 57.8 % (42-76); RED BLOOD COUNT 5.71 mill/uL (4.20-5.60)
[2023-04-25 10:01] LABS: URINE BILIRUBIN - DIPSTICK NEGATIVE (NEGATIVE); URINE BLOOD DIPSTICK TRACE-INTACT (NEGATIVE); URINE COLOR YELLOW; URINE GLUCOSE - DIPSTICK >=1000 mg/dL (NEGATIVE); URINE KETONE NEGATIVE (NEGATIVE); URINE LEUK ESTERASE NEGATIVE (NEGATIVE); URINE PH 5.5 (4.5-8.0); URINE PROTEIN - DIPSTICK NEGATIVE (NEG-TRACE); URINE UROBILINOGEN - DIPSTICK 0.2 E.U./dL (0.2)
[2023-04-25 10:05] LABS: ALBUMIN 4.4 g/dL (3.2-5.0); ALKALINE PHOSPHATASE 135 u/l (38-126); AMYLASE 60 u/l (30-110); ANION GAP 14 (6-22 (CALC)); BILIRUBIN, TOTAL 0.3 mg/dL (0.02-1.3); BUN 7 mg/dL (7-17); BUN/CREATININE RATIO 19 (12-20 (CALC)); CARBON DIOXIDE 23 mmol/l (22-30); CHLORIDE 107 mmol/l (95-108); CREATININE 0.4 mg/dL (0.5-1.0); GFR FOR AFR.AMER. > 60 ML/MIN (>=60 (CALC)); GFR OTHER RACES > 60 ML/MIN (>=60 (CALC)); LIPASE 60 u/l (23-300); SGOT/AST 98 u/l (14-36); SODIUM 139 mmol/l (137-146); TOTAL PROTEIN 7.5 g/dL (6.3-8.2)
[2023-04-25 10:05] LABS: URINE NITRITE - DIPSTICK NEGATIVE (Negative)
[2023-04-25] MEDS ORDERED: METFORMIN HCL1000 MG PO (13:42)
== END 2023-04-25 13:55 | disposition home or self-care (01) ==
LOC: ED 08:50
PROVIDERS: Family Medicine
DX: K52.9 Noninfective gastroenteritis and colitis, unspecified (principal); E11.9 Type 2 diabetes mellitus without complications

== ENCOUNTER 2023-08-12 09:27 | Emergency (ER) | payer OTHER ==
[~2023-08-12] VITALS: Ht 149.9 cm; Wt 78.6 kg
[2023-08-12] VITALS (14 sets, daily range): BP systolic 88–116; BP diastolic 34–73
[~2023-08-12 09:27] MED LIST changes: +METFORMIN HCL1000 MG PO
[2023-08-12] MEDS ORDERED: METFORMIN HCL1000 MG PO (10:08)
== END 2023-08-12 13:20 | disposition home or self-care (01) ==
LOC: ED 09:27
DX: U07.1 COVID-19 (principal); R05.9 Cough, unspecified; R09.81 Nasal congestion; R52 Pain, unspecified; E11.9 Type 2 diabetes mellitus without complications; Z79.84 Long term (current) use of oral hypoglycemic drugs

== ENCOUNTER 2023-11-30 20:43 | Emergency (ER) | payer SELFPAY ==
[~2023-11-30] VITALS: Ht 149.9 cm; Wt 68.0 kg
[~2023-11-30 20:43] MED LIST changes: +BROMFED DM 2-301 SOL PO; +PROTONIX40 M2 PO
[2023-11-30 21:04] VITALS: BP 108/87
[2023-11-30 21:15] VITALS: BP 112/82
[2023-11-30 21:36] LABS: URINE BILIRUBIN - DIPSTICK Negative (NEGATIVE); URINE BLOOD DIPSTICK Trace-intact (NEGATIVE); URINE GLUCOSE - DIPSTICK >=1000 mg/dL (NEGATIVE); URINE KETONE 15 mg/dL (NEGATIVE); URINE LEUK ESTERASE Negative (NEGATIVE); URINE NITRITE - DIPSTICK Negative (Negative); URINE PH 5.5 (4.5-8.0); URINE PROTEIN - DIPSTICK Trace mg/dL (NEG-TRACE); URINE UROBILINOGEN - DIPSTICK 0.2 E.U./dL (0.2)
[2023-11-30 21:38] LABS: URINE COLOR Yellow
[2023-11-30 21:45] VITALS: BP 107/62
[2023-11-30 21:47] LABS: ALBUMIN 4.7 g/dL (3.2-5.0); ALKALINE PHOSPHATASE 108 u/l (38-126); ANION GAP 15 (6-22 (CALC)); BUN 13 mg/dL (7-17); BUN/CREATININE RATIO 35 (12-20 (CALC)); CARBON DIOXIDE 22 mmol/l (22-30); CHLORIDE 102 mmol/l (95-108); CREATININE 0.4 mg/dL (0.5-1.0); GFR FOR AFR.AMER. > 60 ML/MIN (>=60 (CALC)); GFR OTHER RACES > 60 ML/MIN (>=60 (CALC)); SGOT/AST 71 u/l (14-36); SODIUM 134 mmol/l (137-146)
[2023-11-30 21:48] LABS: BASO% 0.1 % (0-3); EOS% 0.6 % (0-8); HEMOGLOBIN 10.8 g/dl (12.0-16.0); IMMATURE GRANULOCYTES 0.2 % (0.0-5.0); LYMPH% 14.4 % (15-41); MEAN CORPUSCULAR HGB 16.6 pG CALC (26.0-32.0); MEAN CORPUSCULAR HGB CONC 27.7 g/dL CAL (32.0-36.0); MONO% 4.8 % (2-13); NEUT# 8.01 thou/uL (2.00-7.15); NEUT% 79.9 % (42-76); RED BLOOD COUNT 6.5 mill/uL (4.20-5.60); RED CELL DISTRI WIDTH 18.4 % (11.5-15.5)
[2023-11-30 21:51] LABS: BILIRUBIN, TOTAL 0.6 mg/dL (0.02-1.3)
[2023-11-30 22:00] VITALS: BP 103/62
[2023-11-30] MEDS ORDERED: MIRALAX17 GM PO (22:49)
[2023-11-30] MEDS ORDERED: CITRATE OF MEGNESIA PO (22:49)
[2023-11-30 23:33] VITALS: BP 103/62
== END 2023-11-30 23:10 | disposition home or self-care (01) | DRG 392 ==
LOC: ED 20:43
PROVIDERS: Family Medicine
DX: K59.00 Constipation, unspecified (principal); E11.9 Type 2 diabetes mellitus without complications; I10 Essential (primary) hypertension

== ENCOUNTER 2024-05-18 23:19 | Emergency (ER) | payer BC ==
[~2024-05-18] VITALS: Ht 149.9 cm; Wt 73.8 kg
[~2024-05-18 23:19] MED LIST changes: +AMOX/K CLAV875 M1 PO; +BENZONATATE200 MG PO; +CVS MUCUS EXT1200 MG PO; +CYCLOBENZAPRINE10 MG PO; +DELSYM30 MG/5 ML PO; +DULCOLAX10 MG RE; +NABUMETONE750 MG PO
[2024-05-18] MEDS ORDERED: ACETAMINOPHEN 500 MG TAB PO ONE (23:55)
[2024-05-18] MEDS ORDERED: DICLOFENAC SODIUM 75 MG/TAB PO ONE (23:55)
[2024-05-19 01:00] VITALS: BP 123/70
== END 2024-05-19 01:00 | disposition home or self-care (01) | DRG 556 ==
LOC: ED 23:19
DX: M25.552 Pain in left hip (principal); I10 Essential (primary) hypertension; E11.9 Type 2 diabetes mellitus without complications

== ENCOUNTER 2024-08-30 19:16 | Emergency (ER) | payer SELFPAY ==
[~2024-08-30] VITALS: Ht 149.9 cm; Wt 72.0 kg
[2024-08-30 19:39] VITALS: BP 112/62
[2024-08-30] MEDS ORDERED: SODIUM CHLORIDE 0.9% 1,000 ML IV ONE (19:45)
[2024-08-30] MEDS ORDERED: CLINDAMYCIN PHOSPHATE 50 ML IV ONE (19:45)
[2024-08-30 19:46] VITALS: BP 95/50
[2024-08-30] MEDS ORDERED: CEFEPIME HYDROCHLORIDE 2 GM in SODIUM CHLORIDE 0.9% 100 ML IV ONE (19:50)
[2024-08-30] MEDS ORDERED: VANCOMYCIN HCL 1 GM in SODIUM CHLORIDE 0.9% 250 ML IV ONE (19:50)
[2024-08-30 20:07] LABS: BASO% 0.5 % (0-3); EOS% 1.1 % (0-8); HEMATOCRIT 31.6 % (37.0-47.0); HEMOGLOBIN 7.8 g/dl (12.0-16.0); IMMATURE GRANULOCYTES 0.1 % (0.0-5.0); LYMPH% 27.4 % (15-41); MEAN CELL VOLUME 54.7 fL CALC (80.0-100.0); MEAN CORPUSCULAR HGB 13.5 pG CALC (26.0-32.0); MEAN CORPUSCULAR HGB CONC 24.7 g/dL CAL (32.0-36.0); MONO% 5.6 % (2-13); NEUT# 4.78 thou/uL (2.00-7.15); NEUT% 65.3 % (42-76); RED BLOOD COUNT 5.78 mill/uL (4.20-5.60); RED CELL DISTRI WIDTH 20.2 % (11.5-15.5)
[2024-08-30 20:18] LABS: ALBUMIN 4.1 g/dL (3.2-5.0); BILIRUBIN, TOTAL 0.6 mg/dL (0.02-1.3); CREATININE 0.4 mg/dL (0.5-1.0); TOTAL PROTEIN 7.1 g/dL (6.3-8.2)
[2024-08-30 20:20] LABS: POTASSIUM 3.1 mmol/l (3.5-5.1)
[2024-08-30] MEDS ORDERED: POTASSIUM CHLORIDE 20 MEQ/TAB PO ONE ×2 (20:35→23:50)
[2024-08-30 20:46] LABS: URINE BILIRUBIN - DIPSTICK Negative (NEGATIVE); URINE BLOOD DIPSTICK Large (NEGATIVE); URINE CLARITY Slightly Cloudy; URINE GLUCOSE - DIPSTICK >=1000 mg/dL (NEGATIVE); URINE KETONE Trace mg/dL (NEGATIVE); URINE LEUK ESTERASE Small (Negative); URINE NITRITE - DIPSTICK Negative (Negative); URINE PH 6.5 (4.5-8.0); URINE PROTEIN - DIPSTICK Trace mg/dL (NEG-TRACE); URINE SPECIFIC GRAVITY 1.015; URINE UROBILINOGEN - DIPSTICK 0.2 E.U./dL (0.2)
[2024-08-30 20:48] LABS: URINE COLOR Yellow
[2024-08-30 20:54] LABS: URINE SQUAMOUS EPITHELIAL CELL MANY EPI/hpf (0-FEW)
[2024-08-30] MEDS ORDERED: BACTRIM DS1 TAB PO (21:38)
[2024-08-30] MEDS ORDERED: METFORMIN HCL1000 M1 PO (21:38)
[2024-08-31 00:30] VITALS: BP 95/50
== END 2024-08-31 00:40 | disposition home or self-care (01) | DRG 603 ==
LOC: ED 19:16
PROVIDERS: Emergency Medicine
DX: L02.211 Cutaneous abscess of abdominal wall (principal); E11.9 Type 2 diabetes mellitus without complications; D64.9 Anemia, unspecified; I10 Essential (primary) hypertension; T38.3X6A Underdosing of insulin and oral hypoglycemic [antidiabetic] drugs, initial encounter; Z91.120 Patient's intentional underdosing of medication regimen due to financial hardship; Z79.84 Long term (current) use of oral hypoglycemic drugs
CPT/HCPCS: J0692; Q9967

== ENCOUNTER 2024-10-28 19:05 | Emergency (ER) | payer SELFPAY ==
[~2024-10-28] VITALS: Ht 149.9 cm; Wt 74.0 kg
[~2024-10-28 19:05] MED LIST changes: +METFORMIN HCL1000 M1 PO
[2024-10-28 19:18] VITALS: BP 114/76
[2024-10-28 19:19] VITALS: BP 121/63
[2024-10-28] MEDS ORDERED: SODIUM CHLORIDE 0.9% 1,000 ML IV ONE ×2 (19:35)
[2024-10-28] MEDS ORDERED: DiphenhydrAMINE HCL 50 MG/ML SDV IV ONE ×2 (19:35→20:20)
[2024-10-28] MEDS ORDERED: METOCLOPRAMIDE HCL 10 MG/2 ML SDV IV ONE ×2 (19:35→20:20)
[2024-10-28 19:43] LABS: URINE BILIRUBIN - DIPSTICK Negative (NEGATIVE); URINE BLOOD DIPSTICK Large (NEGATIVE); URINE COLOR Red; URINE GLUCOSE - DIPSTICK Negative (NEGATIVE); URINE KETONE Negative (NEGATIVE); URINE LEUK ESTERASE Trace (NEGATIVE); URINE NITRITE - DIPSTICK Negative (Negative); URINE PH 5.5 (4.5-8.0); URINE PROTEIN - DIPSTICK 100 mg/dL (NEG-TRACE); URINE UROBILINOGEN - DIPSTICK 0.2 E.U./dL (0.2)
[2024-10-28 19:44] LABS: URINE BACTERIA FEW hpf; URINE RBC >100 RBC/hpf (0-5); URINE SQUAMOUS EPITHELIAL CELL FEW EPI/hpf (0-FEW); URINE WBC 0-2 WBC/hpf (0-5)
[2024-10-28 19:48] VITALS: BP 95/53
[2024-10-28 19:52] LABS: BASO% 0.6 % (0-3); EOS% 2.1 % (0-8); HEMATOCRIT 29.7 % (37.0-47.0); HEMOGLOBIN 7.1 g/dl (12.0-16.0); IMMATURE GRANULOCYTES 0.1 % (0.0-5.0); LYMPH% 39.1 % (15-41); MEAN CELL VOLUME 53.4 fL CALC (80.0-100.0); MEAN CORPUSCULAR HGB 12.8 pG CALC (26.0-32.0); MEAN CORPUSCULAR HGB CONC 23.9 g/dL CAL (32.0-36.0); MONO% 4.6 % (2-13); NEUT# 3.76 thou/uL (2.00-7.15); NEUT% 53.5 % (42-76); RED BLOOD COUNT 5.56 mill/uL (4.20-5.60)
[2024-10-28 20:04] LABS: ALBUMIN 4.2 g/dL (3.2-5.0); BILIRUBIN, TOTAL 0.4 mg/dL (0.02-1.3); CREATININE 0.3 mg/dL (0.5-1.0); POTASSIUM 3.8 mmol/l (3.5-5.1)
[2024-10-28 20:23] VITALS: BP 106/66
[2024-10-28] MEDS ORDERED: ONDANSETRON4 MG PO (20:52)
[2024-10-28 21:00] VITALS: BP 93/55
[2024-10-28 21:18] VITALS: BP 93/55
== END 2024-10-28 21:18 | disposition home or self-care (01) | DRG 866 ==
LOC: ED 19:05
PROVIDERS: Emergency Medicine
DX: B34.9 Viral infection, unspecified (principal); D64.9 Anemia, unspecified; E11.9 Type 2 diabetes mellitus without complications; I10 Essential (primary) hypertension; Z79.84 Long term (current) use of oral hypoglycemic drugs; Z20.822 Contact with and (suspected) exposure to COVID-19
CPT/HCPCS: J1200; J2765

== ENCOUNTER 2024-10-31 21:52 | Emergency (ER) | payer SELFPAY ==
[~2024-10-31] VITALS: Ht 149.9 cm; Wt 73.2 kg
[~2024-10-31 21:52] MED LIST changes: +ONDANSETRON4 MG PO
[2024-10-31 22:03] VITALS: BP 123/71
[2024-10-31] MEDS ORDERED: ACETAMINOPHEN 500 MG TAB PO ONE (22:15)
[2024-10-31] MEDS ORDERED: IBUPROFEN 600 MG/TAB PO ONE (22:15)
[2024-10-31 22:31] VITALS: BP 101/55
[2024-10-31 22:36] LABS: BASO% 0.6 % (0-3); EOS% 2.9 % (0-8); HEMATOCRIT 28.8 % (37.0-47.0); IMMATURE GRANULOCYTES 0.3 % (0.0-5.0); LYMPH% 40.8 % (15-41); MEAN CELL VOLUME 54.5 fL CALC (80.0-100.0); MEAN CORPUSCULAR HGB 12.9 pG CALC (26.0-32.0); MEAN CORPUSCULAR HGB CONC 23.6 g/dL CAL (32.0-36.0); MONO% 5.9 % (2-13); NEUT# 3.47 thou/uL (2.00-7.15); NEUT% 49.5 % (42-76); RED BLOOD COUNT 5.28 mill/uL (4.20-5.60); RED CELL DISTRI WIDTH 21.1 % (11.5-15.5)
[2024-10-31 22:44] LABS: HEMOGLOBIN 6.8 g/dl (12.0-16.0)
[2024-10-31 22:46] VITALS: BP 100/55
[2024-10-31 23:15] VITALS: BP 100/55
== END 2024-10-31 23:24 | disposition home or self-care (01) | DRG 153 ==
LOC: ED 21:52
PROVIDERS: Family Medicine
DX: J06.9 Acute upper respiratory infection, unspecified (principal); D64.9 Anemia, unspecified; I10 Essential (primary) hypertension; E11.9 Type 2 diabetes mellitus without complications; Z79.84 Long term (current) use of oral hypoglycemic drugs; Z20.822 Contact with and (suspected) exposure to COVID-19

== ENCOUNTER 2024-11-18 19:33 | Emergency (ER) | payer SELFPAY ==
[~2024-11-18] VITALS: Ht 149.9 cm; Wt 73.0 kg
[2024-11-18] MEDS ORDERED: BENZONATATE200 MG PO (22:16)
[2024-11-18 22:41] VITALS: BP 112/72
== END 2024-11-18 22:41 | disposition home or self-care (01) | DRG 153 ==
LOC: ED 19:33
DX: J06.9 Acute upper respiratory infection, unspecified (principal); I10 Essential (primary) hypertension; E11.9 Type 2 diabetes mellitus without complications; Z79.84 Long term (current) use of oral hypoglycemic drugs; Z20.822 Contact with and (suspected) exposure to COVID-19

== ENCOUNTER 2024-12-13 09:33 | Emergency (ER) | payer OTHER ==
[~2024-12-13] VITALS: Ht 149.9 cm; Wt 74.0 kg
[2024-12-13 09:46] VITALS: BP 109/67
[2024-12-13 10:00] VITALS: BP 91/54
[2024-12-13 10:15] VITALS: BP 104/75
[2024-12-13 10:30] VITALS: BP 109/72
[2024-12-13 10:45] VITALS: BP 102/68
[2024-12-13] MEDS ORDERED: NAPROXEN500 MG PO (10:56)
[2024-12-13] MEDS ORDERED: FLONASE AL50 MCG/AC1 NS (10:56)
[2024-12-13] MEDS ORDERED: AMOXICILLIN500 M2 PO (10:56)
[2024-12-13 11:00] VITALS: BP 97/62
== END 2024-12-13 11:09 | disposition home or self-care (01) | DRG 153 ==
LOC: ED 09:33
DX: H66.92 Otitis media, unspecified, left ear (principal); J30.9 Allergic rhinitis, unspecified; I10 Essential (primary) hypertension; E11.9 Type 2 diabetes mellitus without complications; Z79.84 Long term (current) use of oral hypoglycemic drugs

== ENCOUNTER 2025-01-02 19:44 | Emergency (ER) | payer OTHER ==
[2025-01-02] VITALS (12 sets, daily range): BP systolic 97–119; BP diastolic 54–88
[~2025-01-02] VITALS: Ht 149.9 cm; Wt 74.0 kg
[~2025-01-02 19:44] MED LIST changes: +AMOXICILLIN500 M2 PO; +FLONASE AL50 MCG/AC1 NS
[2025-01-02] MEDS ORDERED: ASPIRIN 81 MG/TAB PO ONE (20:05)
[2025-01-02 20:10] LABS: BASO% 0.5 % (0-3); EOS% 3.5 % (0-8); LYMPH% 36.8 % (15-41); MEAN CORPUSCULAR HGB 20.1 pG CALC (26.0-32.0); MEAN CORPUSCULAR HGB CONC 28.9 g/dL CAL (32.0-36.0); MONO% 4.8 % (2-13); NEUT# 3.3 thou/uL (2.00-7.15); NEUT% 54.4 % (42-76); RED BLOOD COUNT 5.91 mill/uL (4.20-5.60); RED CELL DISTRI WIDTH 20.4 % (11.5-15.5)
[2025-01-02 20:15] LABS: HEMATOCRIT 41.2 % (37.0-47.0); HEMOGLOBIN 11.9 g/dl (12.0-16.0); MEAN CELL VOLUME 69.7 fL CALC (80.0-100.0)
[2025-01-02 20:24] LABS: ALBUMIN 4.1 g/dL (3.2-5.0); ANION GAP 13 (6-22 (CALC)); BILIRUBIN, TOTAL 0.3 mg/dL (0.02-1.3); BUN 10 mg/dL (7-17); BUN/CREATININE RATIO 18 (12-20 (CALC)); CARBON DIOXIDE 24 mmol/l (22-30); CHLORIDE 102 mmol/l (95-108); CREATININE 0.6 mg/dL (0.5-1.0); ESTIMATED GFR 123 ML/MIN (>=90 (CALC)); POTASSIUM 4.2 mmol/l (3.5-5.1); SGOT/AST 59 u/l (14-36); SODIUM 135 mmol/l (137-146); TOTAL PROTEIN 7.4 g/dL (6.3-8.2)
[2025-01-02 20:26] LABS: ALKALINE PHOSPHATASE 188 u/l (38-126)
[2025-01-02] MEDS ORDERED: INSULIN REGULAR (HUMAN) 100 UNIT/ML INJ IV ONE (20:30)
== END 2025-01-02 22:55 | disposition home or self-care (01) ==
LOC: ED 19:44
PROVIDERS: Family Medicine
DX: J98.8 Other specified respiratory disorders (principal); B97.4 Respiratory syncytial virus as the cause of diseases classified elsewhere; E11.9 Type 2 diabetes mellitus without complications; I10 Essential (primary) hypertension; Z79.84 Long term (current) use of oral hypoglycemic drugs; Z20.822 Contact with and (suspected) exposure to COVID-19

== ENCOUNTER 2025-01-31 19:14 | Emergency (ER) | payer OTHER ==
[~2025-01-31] VITALS: Ht 149.9 cm; Wt 73.4 kg
[2025-01-31 19:50] VITALS: BP 123/77
[2025-01-31] MEDS ORDERED: [UNRECOGNIZED DRUG - OTHER] PO ×2 (19:55→20:01)
[2025-01-31 20:00] VITALS: BP 110/74
[2025-01-31] MEDS ORDERED: LIDOCAINE21 MT (20:10)
[2025-01-31 20:15] VITALS: BP 107/76
[2025-01-31 20:16] VITALS: BP 107/76
[2025-02-01] MEDS ORDERED: ZOFRAN4 MG/TAB PO (23:23)
[2025-02-01] MEDS ORDERED: PROTONIX40 MG PO (23:23)
== END 2025-01-31 20:16 | disposition home or self-care (01) | DRG 159 ==
LOC: ED 19:14
DX: K12.0 Recurrent oral aphthae (principal); I10 Essential (primary) hypertension; E11.9 Type 2 diabetes mellitus without complications; Z79.84 Long term (current) use of oral hypoglycemic drugs

== ENCOUNTER 2025-02-01 20:36 | Emergency (ER) | payer OTHER ==
[~2025-02-01] VITALS: Ht 149.9 cm; Wt 68.0 kg
[2025-02-01] VITALS (7 sets, daily range): BP systolic 94–118; BP diastolic 62–77
[~2025-02-01 20:36] MED LIST changes: +LIDOCAINE21 MT; +[UNRECOGNIZED DRUG - OTHER] PO
[2025-02-01] MEDS ORDERED: SODIUM CHLORIDE 0.9% 1,000 ML IV ONE (21:05)
[2025-02-01] MEDS ORDERED: ONDANSETRON HCl 4 MG/2 ML SDV IV ONE (21:05)
[2025-02-01 21:27] LABS: BASO% 0.1 % (0-3); EOS% 1.5 % (0-8); HEMATOCRIT 42.5 % (37.0-47.0); HEMOGLOBIN 12.5 g/dl (12.0-16.0); IMMATURE GRANULOCYTES 0.2 % (0.0-5.0); LYMPH% 14.8 % (15-41); MEAN CELL VOLUME 69.8 fL CALC (80.0-100.0); MEAN CORPUSCULAR HGB 20.5 pG CALC (26.0-32.0); MEAN CORPUSCULAR HGB CONC 29.4 g/dL CAL (32.0-36.0); MONO% 4.6 % (2-13); NEUT# 6.35 thou/uL (2.00-7.15); NEUT% 78.8 % (42-76); RED BLOOD COUNT 6.09 mill/uL (4.20-5.60)
[2025-02-01 21:33] LABS: URINE BILIRUBIN - DIPSTICK Negative (NEGATIVE); URINE BLOOD DIPSTICK Moderate (NEGATIVE); URINE COLOR Red; URINE GLUCOSE - DIPSTICK >=1000 mg/dL (NEGATIVE); URINE KETONE Trace mg/dL (NEGATIVE); URINE LEUK ESTERASE Negative (NEGATIVE); URINE NITRITE - DIPSTICK Negative (Negative); URINE PH 5.5 (4.5-8.0); URINE PROTEIN - DIPSTICK 30 mg/dL (NEG-TRACE); URINE SPECIFIC GRAVITY 1.015; URINE UROBILINOGEN - DIPSTICK 0.2 E.U./dL (0.2)
[2025-02-01 21:35] LABS: URINE RBC >100 RBC/hpf (0-5); URINE SQUAMOUS EPITHELIAL CELL FEW EPI/hpf (0-FEW); URINE WBC 0-2 WBC/hpf (0-5)
[2025-02-01 21:35] LABS: BILIRUBIN, TOTAL 0.4 mg/dL (0.02-1.3); CREATININE 0.3 mg/dL (0.5-1.0); TOTAL PROTEIN 7.4 g/dL (6.3-8.2)
[2025-02-01] MEDS ORDERED: Pantoprazole Sodium 40 MG VIAL (Protonix) IV ONE (22:50)
[2025-02-01] MEDS ORDERED: PROTONIX40 MG PO (23:23)
[2025-02-01] MEDS ORDERED: ZOFRAN4 MG/TAB PO (23:23)
== END 2025-02-01 23:30 | disposition home or self-care (01) | DRG 392 ==
LOC: ED 20:36
PROVIDERS: Family Medicine
DX: K29.70 Gastritis, unspecified, without bleeding (principal); E11.9 Type 2 diabetes mellitus without complications; Z79.84 Long term (current) use of oral hypoglycemic drugs
CPT/HCPCS: J2405; J2470